=== PATIENT | female | born 1990 | race African-American/Black ===

== ENCOUNTER 2019-02-19 17:31 | Inpatient (IN) | payer OTHER, MEDICAID ==
[~2019-02-19] VITALS: Ht 160 cm; Wt 65.8 kg
[2019-02-19 19:26] LABS: BASOPHILS % 0.8 % (0.0-2.0); EOSINOPHILS % 3.2 % (0.0-5.0); HEMATOCRIT. 37.3 % (36.0-48.0); HEMOGLOBIN. 12.5 g/dL (12.0-16.0); LYMPHOCYTES % 31.6 % (20.0-50.0); MEAN CORPUSCULAR VOLUME 83.5 fL (81.0-99.0); MONOCYTES % 6.2 % (2.0-8.0); NEUTROPHILS % 58.2 % (40.0-76.0); PLATELET 154 x1000/uL (130-400); RED BLOOD CELL COUNT 4.46 mill/uL (4.2-5.4); RED CELL DISTRIBUTION WIDTH 14.1 % (11.6-14.6)
[2019-02-19 19:29] LABS: CHLORIDE 107 mEq/L (98-107)
[2019-02-19 19:32] LABS: PARTIAL THROMBOPLASTIN TIME 25.6 sec (23.4-31.0)
[2019-02-19] MEDS ORDERED: ENOXAPARIN 100MG/ML SYR SUBCUT ONE (20:00)
[2019-02-19] MEDS ORDERED: CLONIDINE 0.1MG TABLET PO PRN (20:45)
[2019-02-19] MEDS ORDERED: DOCUSATE SODIUM 100MG CAPSULE PO PRN (20:45)
[2019-02-19] MEDS ORDERED: DIPHENHYDRAMINE 50MG/ML VIAL IV PRN (20:45)
[2019-02-19] MEDS ORDERED: HYDRALAZINE 20MG/ML VIAL IV PRN (20:45)
[2019-02-19] MEDS ORDERED: LORAZEPAM 2MG/ML CPJ IV PRN (20:45)
[2019-02-19] MEDS ORDERED: MAGNESIUM/ALUMINUM HYDROXIDE/SIMETHICONE 30ML UDC PO PRN (20:45)
[2019-02-19] MEDS ORDERED: ACETAMINOPHEN 325MG TABLET PO PRN (20:45)
[2019-02-19] MEDS ORDERED: NA PHOS,M-B/NA PHOS,DI-BA ENEMA 118ML PR PRN (20:45)
[2019-02-19] MEDS ORDERED: GUAIFENESIN 200MG/10ML SUGAR FREE UDC PO PRN (20:45)
[2019-02-19] MEDS ORDERED: ONDANSETRON HCL 4MG/2ML INJ IV PRN (20:45)
[2019-02-19] MEDS ORDERED: IPRATROPIUM/ALBUTEROL 0.5-3(2.5)MG/3ML NEB INH PRN (20:45)
[2019-02-19] MEDS ORDERED: HYDROMORPHONE HCL/PF 2MG/ML CPJ IV PRN (21:30)
[2019-02-19] MEDS: SODIUM CHLORIDE 0.9% INJ 3ML FLUSH IVF SCH (22:00)
[2019-02-19] MEDS: HYDROCODONE/ACETAMINOPHEN 5/325MG TABLET PO PRN (22:50)
[2019-02-19 23:05] VITALS: BP 113/63
[2019-02-20] VITALS: BP 113/63
[2019-02-20 01:23] LABS: CREATINE KINASE 166 IU/L (26-192)
[2019-02-20 01:24] LABS: CREATINE KINASE MB FRACTION < 1.0 ng/mL (0.5-3.6)
[2019-02-20] MEDS ORDERED: ENOXAPARIN 80MG/0.8ML SYR SUBCUT SCH (02:00)
[2019-02-20] MEDS ORDERED: HYDRALAZINE 10 MG in DEXTROSE 5% WATER 50 ML IV PRN (03:00)
[2019-02-20 04:00] VITALS: BP 96/53
[2019-02-20] MEDS: SODIUM CHLORIDE 0.9% INJ 3ML FLUSH IVF SCH (06:00)
[2019-02-20 07:10] LABS: BASOPHILS % 0.6 % (0.0-2.0); EOSINOPHILS % 5.4 % (0.0-5.0); HEMATOCRIT. 37.5 % (36.0-48.0); HEMOGLOBIN. 12.5 g/dL (12.0-16.0); LYMPHOCYTES % 35.6 % (20.0-50.0); MEAN CORPUSCULAR HEMOGLOBIN 28.1 pg (28.0-32.0); MEAN PLATELET VOLUME 8.6 fl (7.4-10.4); MONOCYTES % 6.8 % (2.0-8.0); NEUTROPHILS % 51.6 % (40.0-76.0); PLATELET 150 x1000/uL (130-400); RED BLOOD CELL COUNT 4.46 mill/uL (4.2-5.4); RED CELL DISTRIBUTION WIDTH 14.6 % (11.6-14.6)
[2019-02-20 08:00] VITALS: BP 106/64
[2019-02-20] MEDS: HYDROCODONE/ACETAMINOPHEN 5/325MG TABLET PO PRN (08:07)
[2019-02-20 08:30] LABS: CHLORIDE 108 mEq/L (98-107)
[2019-02-20 08:58] LABS: CREATINE KINASE 160 IU/L (26-192)
[2019-02-20 09:07] LABS: CREATINE KINASE MB FRACTION < 1.0 ng/mL (0.5-3.6)
[2019-02-20 12:00] VITALS: BP 104/56
== END 2019-02-20 12:22 | disposition home or self-care (01) | DRG 197 ==
LOC: ER 17:31 → 6EST 19:49 → ENRESERV 21:22
PROVIDERS: ADMIT Internal Medicine; ATTEND Internal Medicine
DX: I82.431 Acute embolism and thrombosis of right popliteal vein (principal); F17.210 Nicotine dependence, cigarettes, uncomplicated; W19.XXXA Unspecified fall, initial encounter; Y93.89 Activity, other specified; Y92.89 Other specified places as the place of occurrence of the external cause; Y99.8 Other external cause status
CPT/HCPCS: 36415; 82550; 82553; 84484; 93005; 93971; 96374; 99285; J1650